=== PATIENT | male | born 1980 | race Caucasian/White ===

== ENCOUNTER → 2022-05-07 07:34 | Outpatient (CLI) | payer OTHER, SELFPAY ==
--- NOTE | ~2022-05-07 | US_ITS ---
EXAMINATION: US abdomen complete DATE: 05/07/2022 08:21 INDICATION: Thrombocytopenia TECHNIQUE: Multiple grayscale and Doppler ultrasound images of the abdomen were obtained. COMPARISON: None available FINDINGS: The head and body of the pancreas are normal. The pancreatic tail is obscured by bowel gas. The liver is normal with normal echogenicity and echotexture. No surface nodularity. Normal hepatope sander flow in the main portal vein. The gallbladder is normal with no abnormal wall thickening, pericho lecystic fluid or stones. The normal common bile duct measures 5 mm. There was no sonographic Gaitan sign. The visualized portions of the aorta and inferior vena cava are normal. The right kidney measures 8.5 x 5.8 x 4.9 cm. The left kidney measures 10.5 x 5.9 x 5.9 cm. The kidne ys demonstrate normal parenchymal echogenicity. There is no hydronephrosis. The spleen is normal in a ppearance and measures 10.2 cm. IMPRESSION: 1. No sonographic correlate for the patient's symptoms. Reviewed, dictated and finalized at location B.
== END ==
PROVIDERS: PCP Family Medicine; Visit Provider Internal Medicine Hematology & Oncology
DX: D69.59 Other secondary thrombocytopenia (principal)
CPT/HCPCS: 76700

== ENCOUNTER → 2022-11-05 14:38 | Outpatient (CLI) | payer OTHER, SELFPAY ==
--- NOTE | ~2022-11-05 | XR_ITS ---
EXAM: XR shoulder LT min 2V DATE: 11/05/2022 14:58 HISTORY: Unspecified injury of left shoulder and upper arm, initial e . COMPARISON: None available. FINDINGS: Normal mineralization. No fracture or dislocation. No lytic or blastic lesion. Moderate AC joint hypertrophy. No erosion or periosteal change. Soft tissues within normal limits. IMPRESSION: No acute osseous finding in the left shoulder. Reviewed, dictated and finalized at location K.
== END ==
PROVIDERS: PCP Family Medicine; Visit Provider Nurse Practitioner Family
DX: S49.92XA Unspecified injury of left shoulder and upper arm, initial encounter (principal); X58.XXXA Exposure to other specified factors, initial encounter
CPT/HCPCS: 73030

== ENCOUNTER → 2022-11-19 14:15 | Outpatient (CLI) | payer OTHER, SELFPAY ==
--- NOTE | ~2022-11-19 | MR_ITS ---
MRI of the left shoulder Technique: Axial proton-density fat-sat images, coronal proton density fat-sat and T2 fat-sat images, and sagittal T1-weighted and T2 fat-sat images were acquired. Clinical History: Injury Findings: There is minimal degenerative change at the AC joint, with fibrotic changes distal clavicle . Coracoclavicular, coracoacromial, and coracohumeral ligaments are intact. Supraspinatus and infraspinatus tendons are intact, without partial or full-thickness tear. There is mild to moderate tendinosis of the distal supraspinatus tendon. There is complete tear of the distal transverse ligament fibers of the subscapularis tendon over the bicipital groove. There is associated medial dislocation of the biceps tendon from the bicipital groove. There is [id number] backgro und subscapularis tendinosis. No labral tear identified. Inferior glenohumeral ligament is intact. Minimal glenohumeral joint effusion is present. There is mi nimal fluid within the subacromial/subdeltoid bursa. No muscle atrophy or edema. Impression: Complete tear of the distal transverse ligament fibers of the subscapularis tendon with associated me dial dislocation of the long head biceps tendon from the bicipital groove. Stenosis of the supraspinatus and subscapularis tendons. Reviewed, dictated and finalized at [facility]. Impression: Complete tear of the distal transverse ligament fibers of the subscapularis ten don with associated medial dislocation of the long head biceps tendon from the bicipital groove. Stenosis of the supraspinatus and subscapularis tendons.
== END ==
PROVIDERS: PCP Family Medicine; Visit Provider Nurse Practitioner Family
DX: S49.92XA Unspecified injury of left shoulder and upper arm, initial encounter (principal); X58.XXXA Exposure to other specified factors, initial encounter
CPT/HCPCS: 73221